=== PATIENT | female | born 2000 | race African-American/Black ===

== ENCOUNTER 2020-10-31 21:04 | Emergency (ER) | payer SELFPAY ==
[~2020-10-31] VITALS: Ht 157.5 cm; Wt 65.8 kg
[2020-10-31] MEDS ORDERED: Mylanta II UD 30ml ORAL ONE (21:15)
[2020-10-31] MEDS ORDERED: Lidocaine 2% Visc 15ml soln ORAL ONE (21:15)
--- NOTE | 2020-10-31 21:15 | NUR ---
ED Nurse Note: Patient came in the ED from home with complaints of chest pain for the past three days, pain is worse after eating. Denies any other symptoms.
[2020-10-31] MEDS ORDERED: PRILOSEC OTC20 MG ORAL (21:18)
--- NOTE | 2020-10-31 21:19 | Emergency Room Report ---
History of Present Illness General Chief Complaint: Chest Pain Source: Patient Present Illness [facility] This is a 20-year-old female with no past medical problems. She presents with chief complaint of chest pain. This is a recurrent problem but usually go away. But she has been having this problem that has been ongoing for last 3 days. She says she has some pressure-like in her chest. Worse with eating. No r adiation. No nausea no vomiting. She felt little anxious with it. Denies any calf tenderness or swelling. Not on control pill. Pain is 5 out of 10. No exertional component. No diaphoresis. No family history of DVT or PE. Allergies: Coded Allergies: No Known Allergies (Unverified , 10/31/20) COVID-19 Screening Contact w/high risk pt: No Experienced COVID-19 symptoms?: No COVID-19 Testing performed [employer]IAN: No Patient History Past Medical History: see triage record, old chart reviewed Past Surgical History: none Pertinent Family History: none Social History: Denies: smoking Last Menstrual Period: 10/07/20 Now: No Immunizations: other Reviewed Nursing Documentation: PMH: Agreed; PSxH: Agreed Nursing Documentation-PMH Past Medical History: No Stated History Review of Systems Eye: Denies: eye pain, blurred vision ENT: Denies: ear pain, nose congestion, throat swelling Respiratory: Denies: cough, shortness of breath Cardiovascular: Reports: chest pain; Denies: palpitations Gastrointestinal: Denies: abdominal pain, diarrhea, nausea, vomiting Musculoskeletal: Denies: back pain, joint pain Skin: Denies: rash Neurological: Denies: headache, numbness Endocrine: Denies: increased thirst, increased urine Hematologic/Lymphatic: Denies: easy bruising All Other Systems: negative except mentioned in HPI Physical Exam Vital Signs Date Time Temp Pulse Resp B/P (MAP) Pulse Ox O2 Delivery O2 Flow Rate FiO2 10/31/20 21:07 97.9 88 18 112/62 (79) 95 Room Air Normal vitals Sp02 EP Interpretation: reviewed, normal General Appearance: well appearing, no apparent distress, alert Head: normocephalic, atraumatic Eyes: bilateral eye PERRL, bilateral eye EOMI ENT: hearing grossly normal, normal pharynx Neck: full range of motion, supple, no meningismus Respiratory: chest non-tender, lungs clear, normal breath sounds Cardiovascular #1: regular rate, rhythm, no murmur Gastrointestinal: normal bowel sounds, non tender, no mass, no organomegaly, no bruit, non-distended Musculoskeletal: back normal, normal range of motion, gait/station normal Psychiatric: mood/affect normal Medical Decision Making Diagnostic Impression: Primary Impression: Chest pain Qualified Codes: R07.9 - Chest pain, unspecified Additional Impression: GERD (gastroesophageal reflux disease) Qualified Codes: K21.9 - Gastro-esophageal reflux disease without esophagitis ER Course Patient presents with atypical chest pain. This is noncardiac in nature. EKG normal. No evidence of ACS, PE, dissection. She has no right upper quadrant pain. I doubt this is gallbladder disease. Will discharge home with reassurance. EKG Diagnostic Results Troponin ordered: No - Noncardiac Last Vital Signs Date Time Temp Pulse Resp B/P (MAP) Pulse Ox O2 Delivery O2 Flow Rate FiO2 10/31/20 21:07 97.9 88 18 112/62 (79) 95 Room Air Status: improved Disposition: HOME, SELF-CARE Condition: Stable Scripts Omeprazole Magnesium (PRILOSEC OTC) 20 Mg Tablet. 20 MG ORAL DAILY, #30 TAB Prov: Cash Mancera MD 10/31/20 Patient Instructions: Heartburn, Nonspecific Chest Pain Additional Instructions: Follow-up with your doctor in 7 days. Return if symptoms worsen. Cash Mancera MD Oct 31, 2020 21:19
--- NOTE | 2020-10-31 21:30 | NUR ---
ER DISCHARGE NOTE: Patient is cleared to be discharged per ERMD, pt is aox4, on room air, with stable vital signs. pt was given dc and prescription instructions, pt was able to verbalize understanding, pt id band removed. pt is able to ambulate with steady gait. pt took all belongings.
[2020-10-31 21:41] VITALS: BP 116/69
--- NOTE | 2020-11-01 14:50 | Cardiology Report ---
APPROVED REPORT EKG Measurement Heart [id number] ME [id number] <Conclusion> Normal sinus rhythm with sinus arrhythmia Nonspecific T wave abnormality Abnormal ECG
== END 2020-10-31 21:41 | disposition home or self-care (01) ==
LOC: EMR 21:20
DX: R07.9 Chest pain, unspecified (principal); K21.9 Gastro-esophageal reflux disease without esophagitis
CPT/HCPCS: 93005; 99282